=== PATIENT | female | born 1970 | race African-American/Black ===

== ENCOUNTER 2017-11-04 12:08 | Emergency (ER) | payer OTHER ==
[~2017-11-04] VITALS: Ht 165.1 cm; Wt 93.3 kg
[2017-11-04] MEDS ORDERED: ULTRAM50 MG PO (14:13)
[2017-11-04] MEDS ORDERED: MOTRIN800 MG PO (14:13)
[2017-11-04 14:26] VITALS: BP 160/85
== END 2017-11-04 14:27 | disposition home or self-care (01) ==
LOC: EME 12:08
DX: M25.561 Pain in right knee (principal); M25.461 Effusion, right knee; M17.0 Bilateral primary osteoarthritis of knee
CPT/HCPCS: 73564; 99281; 99284